=== PATIENT | male | born 1990 | race Hispanic/Latino ===

== ENCOUNTER 2025-05-04 12:04 | Emergency (ER) | payer OTHER ==
[~2025-05-04] VITALS: Ht 177.8 cm; Wt 90.7 kg
[2025-05-04 12:14] VITALS: BP 128/72; PULSE 110; RESP 20; TEMP 98.7; O2SAT 98
[2025-05-04] MEDS ORDERED: TORADOL ONE (12:18)
[2025-05-04] MEDS ORDERED: AZIT250T14 PO (12:22)
[2025-05-04] MEDS ORDERED: IBUP-1131 PO (12:22)
[2025-05-04] MEDS ORDERED: PRED20TA PO (12:22)
[2025-05-04] MEDS ORDERED: BENZ-14 PO (12:22)
[2025-05-04] MEDS: TORADOL IM STA (12:23)
[2025-05-04 12:27] VITALS: BP 128/72; PULSE 110; RESP 20; TEMP 98.7; O2SAT 98
== END 2025-05-04 12:27 | disposition home or self-care (01) ==
LOC: ER 12:04
DX: J06.9 Acute upper respiratory infection, unspecified (principal)
CPT/HCPCS: 99283; 96372; J1885